=== PATIENT | female | born 1975 | race African-American/Black ===

== ENCOUNTER 2016-12-24 12:37 | Emergency (ER) | payer BC, MEDICAID ==
[~2016-12-24] VITALS: Ht 157.5 cm; Wt 104.4 kg
[~2016-12-24 12:37] MED LIST: CYCL-36 PO; DILA2TAB4 PO; MOBI7.5T PO
[2016-12-24 12:45] VITALS: BP 121/76; PULSE 86; RESP 18; TEMP 98.1; O2SAT 97
[2016-12-24] MEDS ORDERED: DILA8TAB4 PO (12:49)
[2016-12-24 12:55] LABS: BLOOD, URINE TRACE (NEG); GLUCOSE,URINE NEG (NEG); KETONE, URINE NEG (NEG); NITRITE,URINE NEG (NEG)
[2016-12-24 12:56] LABS: METHOD OF COLLECTION CLEAN CATCH; URINE COLOR YELLOW (YELLW/STRAW)
[2016-12-24 13:01] LABS: BACTERIA, URINE MOD /hpf; COMMENT (UR) CULTURE INDICATED; COMMENT2 (UR) MUCOUS PRESENT; CULTURE IF INDICATED CULTURE INDICATED; RBC, URINE 0-3 /hpf (0-3)
--- NOTE | 2016-12-24 13:02 | PD ---
HPI Chief Complaint: Musculoskeletal Complaint Time Seen by Provider: 12:40 Travel History International Travel<30 days: No Contact w/Intl Traveler<30days: No Traveled to known affect area: No History of Present Illness HPI 41-year-old female presents to the emergency room with acute on chronic right- sided low back pain that started while she was working earlier today. Patient states she is chronic back pain but this feels different. States last time she had the symptoms she had a urinary tract infection and would like to be evaluated for urinary tract infection at this time. Patient is prescribed 8 mg Dilaudid every 6 hours for her chronic back pain but does not take it before going to work so she has not taken anything today. She denies fever, chills, nausea, vomiting, dysuria, urgency, frequency, hematuria, pelvic pain, and vaginal discharge. Last menstrual cycle was 2 weeks ago. Patient denies possibility of . PFSH Past Medical History High Cholesterol: Yes Diminished Hearing: No Headaches: Yes Musculoskeletal: Yes (CHRONIC BACK PAIN) Immunizations Current: No Influenza Vaccination: No ?: Not LMP: "THIS MONTH" : 4 Para: 4 Tubal Ligation: Yes Social History Alcohol Use: No Tobacco Use: No Substance Use: No Allergies-Medications (Allergen,Severity, Reaction): Coded Allergies: No Known Allergies (Verified , 12/24/16) Reported Meds & Prescriptions Reported Meds & Active Scripts Active Cipro (Ciprofloxacin HCl) 500 Mg Tab 500 Mg PO BID 7 Days Reported Dilaudid (Hydromorphone HCl) 8 Mg Tab 8 Mg PO Q6H PRN Review of Systems Except as stated in HPI: all other systems reviewed are Neg Physical Exam Narrative GENERAL: Well-nourished, morbidly obese female in no acute distress. Afebrile. Ambulatory. SKIN: Focused skin assessment warm/dry. HEAD: Normocephalic. EYES: No scleral icterus. No injection or drainage. NECK: Supple, trachea midline. No JVD or lymphadenopathy. CARDIOVASCULAR: Regular rate and rhythm without murmurs, gallops, or rubs. RESPIRATORY: Breath sounds equal bilaterally. No accessory muscle use. GASTROINTESTINAL: Abdomen soft, non-tender, nondistended. BACK: No midline obvious deformity. No CVA tenderness. Tenderness to palpation of the right lower lumbar back. Data Data Last Documented VS Vital Signs Date Time Temp Pulse Resp B/P Pulse Ox O2 Delivery O2 Flow Rate FiO2 12/24/16 12:45 98.1 86 18 121/76 97 Orders Urinalysis - C+S If Indicated (12/24/16 12:46) Urine Culture (12/24/16 12:45) Ct Abd/Pel W/O Iv Contrast (12/24/16 13:19) Ketorolac Inj (Toradol Inj) (12/24/16 13:30) Labs Laboratory Tests Test 12/24/16 12:45 Urine Collection Type CLEAN CATCH Urine Color YELLOW Urine Turbidity SLIGHT Urine pH 6.0 Urine Specific [place] 1.015 Urine Protein NEG mg/dL Urine Glucose (UA) NEG mg/dL Urine Ketones NEG mg/dL Urine Occult Blood TRACE Urine Nitrite NEG Urine Bilirubin NEG Urine Leukocyte Esterase LARGE Urine RBC 0-3 /hpf Urine WBC 25-49 /hpf Urine WBC Clumps FEW Urine Squamous Epithelial 6-8 /hpf Cells Urine Amorphous Sediment FEW Urine Bacteria MOD /hpf Microscopic Urinalysis Comment CULTURE INDICATED Urine Collection Time 1245 MDM Medical Decision Making Medical Screen Exam Complete: Yes Emergency Medical Condition: Yes Medical Record Reviewed: Yes Differential Diagnosis Dysuria, UTI, acute exacerbation of chronic pain, muscle strain, muscle spasm, kidney stone Narrative Course 41-year-old female with history of kidney stones presents to the emergency room for evaluation of right-sided flank pain that started earlier today. Patient states last time she had symptoms like this, she ended up having a urinary tract infection and is requesting to be evaluated today. She has no urinary complaints. Vital signs stable. Physical exam reveals right-sided low back pain but no CVA tenderness. Abdomen soft, nontender. UA shows evidence of infection with some blood. Given history of kidney stones, hematuria, and no urinary symptoms, CT was ordered to evaluate for stones. CT is negative for kidney stones. This is acute cystitis. Patient given 7 days of Cipro to cover for possible pyelonephritis. Patient was discharged with instructions to follow up with her PCP for other CT findings. Told to return for worsening symptoms. She understands and agrees to plan. Diagnosis Primary Impression: Urinary tract infection Qualified Code: N30.01 - Acute cystitis with hematuria Referrals: Primary Care Physician Patient Instructions: General Instructions, Urinary Tract Infection in Women ( ED) Additional Instructions: Rest and drink plenty of fluids. Take prescribed pain medication for pain. Cipro as directed, until gone. Follow-up with PCP concerning CT findings. Return for worsening symptoms. Med/Other Pt SpecificInfo: Prescription(s) given Scripts Ciprofloxacin (Cipro)500 Mg [id number] Mg PO BID 7 Days Ref 0 Prov:Yuri Salmon MD 12/24/16 Disposition: 01 DISCHARGE HOME Condition: Stable Joie Salvador Dec 24, 2016 13:01
[2016-12-24] MEDS ORDERED: CIPR-9 PO (13:14)
[2016-12-24] MEDS ORDERED: KETOROLAC TROMETHAMINE 60 MG/2 ML (IM) VIAL IM ONE (13:30)
--- NOTE | 2016-12-24 14:03 | RADRPT ---
EXAM DATE/TIME: 12/24/2016 13:27 [facility] COMPARISON: No previous studies available for comparison. INDICATIONS : Right lower flank pain. Evaluate for calculi. ORAL CONTRAST: No oral contrast ingested. RADIATION DOSE: 23.99 CTDIvol (mGy) MEDICAL HISTORY : None SURGICAL HISTORY : Tubal ligation. ENCOUNTER: Initial ACUITY: 1 day PAIN SCALE: 5/10 LOCATION: Right flank TECHNIQUE: Volumetric scanning of the abdomen and pelvis was performed. Using automated exposure control and ad justment of the mA and/or kV according to patient size, radiation dose was kept as low as reasonably achievable to obtain optimal diagnostic quality images. DICOM format image data is available electro nically for review and comparison. FINDINGS: LOWER LUNGS: The visualized lower lungs are clear. LIVER: Homogeneous density without lesion. There is no dilation of the biliary tree. No calcified gallston es. SPLEEN: Normal size without lesion. PANCREAS: Within normal limits. KIDNEYS: Normal in size and shape. There is no mass, stone, or hydronephrosis. ADRENAL GLANDS: Within normal limits. VASCULAR: There is no aortic aneurysm. BOWEL/MESENTERY: The stomach, small bowel, and colon demonstrate no acute abnormality. There is no free intraperitone al air or fluid. ABDOMINAL WALL: Within normal limits. RETROPERITONEUM: There is no lymphadenopathy. BLADDER: No wall thickening or mass. REPRODUCTIVE: Within normal limits. INGUINAL: Tiny bilateral inguinal hernias containing only fat are noted. MUSCULOSKELETAL: Mild degenerative changes and scoliosis of the thoracolumbar spine are noted. CONCLUSION: 1. No acute obstructive uropathy. 2. Tiny bilateral inguinal hernias containing only fat. 3. Mild degenerative changes and scoliosis of the thoraco-lumbar spine. Jose A Tellez MD on December 24, 2016 at 13:56 Board Certified Radiologist. This report was verified electronically.
== END 2016-12-24 14:38 | disposition home or self-care (01) ==
LOC: PHEFT 12:37
DX: N30.01 Acute cystitis with hematuria (principal); B96.89 Other specified bacterial agents as the cause of diseases classified elsewhere; M54.5 Low back pain; G89.29 Other chronic pain
CPT/HCPCS: 74176; 81001; 87086

== ENCOUNTER 2017-02-11 09:07 | Emergency (ER) | payer BC ==
[~2017-02-11] VITALS: Ht 160 cm; Wt 102.0 kg
[~2017-02-11 09:07] MED LIST changes: +CIPR-9 PO; -CYCL-36 PO; -DILA2TAB4 PO; +DILA8TAB4 PO; -MOBI7.5T PO
[2017-02-11 09:10] VITALS: BP 157/84; PULSE 85; RESP 17; TEMP 98.4; O2SAT 99
[2017-02-11] MEDS ORDERED: IBUP800T23 PO (09:34)
[2017-02-11] MEDS ORDERED: MEDR4PAK PO (09:34)
[2017-02-11] MEDS ORDERED: ROBA500T PO (09:34)
--- NOTE | 2017-02-11 09:34 | PD ---
HPI Chief Complaint: Back/ Neck Pain or Injury Time Seen by Provider: 09:31 Travel History International Travel<30 days: No Contact w/Intl Traveler<30days: No Traveled to known affect area: No History of Present Illness HPI 41-year-old female presents to the emergency Department with complaint of right- sided low back pain that radiates down her right leg that started last night. Denies injury. Denies heavy lifting or straining. Reports history of chronic low back pain. Denies encopresis, incontinence, saddle anesthesias. Denies IV drug use or cancer. Denies fever, vomiting, dysuria, abdominal pain, change in stool. Denies paresthesias, loss of sensation or decreased range of motion, decreased strength bilateral lower extremities. Reports being ambulatory with a limp to the right lower extremities. Has not taken any medications or treatments to alleviate her symptoms. Symptoms are mild in severity. No known allergies. Has no medical complaints. No other modifying factors or associated signs and symptoms. PFSH Past Medical History High Cholesterol: Yes Diminished Hearing: No Headaches: Yes Musculoskeletal: Yes (CHRONIC BACK PAIN) Immunizations Current: No ?: Not LMP: 3 WEEKA AGO : 4 Para: 4 Tubal Ligation: Yes Social History Alcohol Use: No Tobacco Use: No Substance Use: No Allergies-Medications (Allergen,Severity, Reaction): Coded Allergies: No Known Allergies (Verified , 02/11/17) Reported Meds & Prescriptions Reported Meds & Active Scripts Active Medrol Dosepak (Methylprednisolone) 4 Mg Dspk 4 Mg PO DIRECTED Per Pharmacist direction Ibuprofen 800 Mg Tab 800 Mg PO Q6HR PRN Robaxin (Methocarbamol) 500 Mg Tab 500 Mg PO QID PRN Reported Dilaudid (Hydromorphone HCl) 8 Mg Tab 8 Mg PO Q6H PRN Review of Systems Except as stated in HPI: all other systems reviewed are Neg Physical Exam Narrative GENERAL: Well-nourished, well-developed black female patient, in no acute distress; afebrile, nontoxic-appearing SKIN: Warm and dry. HEAD: Atraumatic. Normocephalic. EYES: Pupils equal and round. No scleral icterus. No injection or drainage. ENT: Mucosa pink and moist. Airway patent. NECK: Trachea midline. CARDIOVASCULAR: Regular rate. RESPIRATORY: No accessory muscle use. GASTROINTESTINAL: Obese. MUSCULOSKELETAL: Bilateral lower extremities supple and non-tense with 2+ pedal pulses and sensory intact; with full range of motion and 5/5 strength. 2 + DTRs bilaterally. Active dorsiflexion and extension of bilateral feet. Right straight leg raise is positive for low back pain. Ambulatory in room with normal gait. Sitting up in bed at 90. No obvious deformities. No clubbing. No cyanosis. No edema. BACK: No midline point tenderness on palpation of the lumbar spine. Tenderness on palpation of right lumbar iliosacral area. No obvious deformities. NEUROLOGICAL: Awake and alert. Oriented 3. No obvious cranial nerve deficits. Motor grossly within normal limits. Normal speech. Moves all extremities. 5/5 strength to all extremities. Sensory intact. PSYCHIATRIC: Appropriate mood and affect; insight and judgment normal. Data Data Last Documented VS Vital Signs Date Time Temp Pulse Resp B/P (MAP) Pulse Ox O2 Delivery O2 Flow Rate FiO2 02/11/17 09:48 02/11/17 09:10 98.4 85 17 99 Orders Orders Ibuprofen (Motrin) (02/11/17 09:45) Methocarbamol (Robaxin) (02/11/17 09:45) [facility] Medical Decision Making Medical Screen Exam Complete: Yes Emergency Medical Condition: Yes Medical Record Reviewed: Yes Differential Diagnosis Low back pain, sciatica, low back strain, acute exacerbation of chronic low back pain Narrative Course 41-year-old female physical exam and history of present illness consistent with right-sided low back pain with sciatica. Patient denies encopresis, incontinence, saddle anesthesias. Denies any drug use or cancer. Has no midline tenderness on palpation of the lumbar spine. Is ambulatory in the room with a limp to the right lower extremity. Ibuprofen and Robaxin administered in the ER. Ibuprofen, Robaxin, Medrol Dosepak prescribed for home. Instructed patient to follow up with primary care provider. Patient verbalizes understanding and agreement with treatment plan. Patient is medically cleared and stable for discharge. Discussed reasons to return to the emergency department. Patient agrees with treatment plan. The patients vital signs are stable and the patient is stable for outpatient follow-up and treatment. Patient discharged home, stable and in no acute distress. Diagnosis Primary Impression: Right-sided low back pain with sciatica Qualified Codes: M54.41 - Lumbago with sciatica, right side Referrals: Primary Care Physician Patient Instructions: Acute Low Back Pain (ED), General Instructions, Sciatica (ED) Departure Forms: Tests/Procedures, Work Release Enter return to work date: Feb 13, 2017 Additional Instructions: Tylenol or ibuprofen as directed and as needed for pain Robaxin as prescribed and as needed for muscle spasms Heating pad and/or ice to affected area to reduce pain Avoid aggravating activities; increase activity as tolerated Follow-up with primary care provider Return to emergency department immediately with worsening of symptoms Med/Other Pt SpecificInfo: Prescription(s) given Scripts Methylprednisolone Dosepak (Medrol Dosepak) 4 Mg Dspk 4 MG PO DIRECTED, #1 DSPK 0 Refills Per Pharmacist direction Prov: Deirdre Dominique 02/11/17 Ibuprofen (Ibuprofen) 800 Mg Tab 800 MG PO Q6HR Y for PAIN, #30 TAB 0 Refills Prov: Deirdre Dominique 02/11/17 Methocarbamol (Robaxin) 500 Mg Tab 500 MG PO QID Y for MUSCLE SPASM, #30 TAB 0 Refills Prov: Deirdre Dominique 02/11/17 Disposition: 01 DISCHARGE HOME Condition: Stable Deirdre Dominique Feb 11, 2017 09:34
[2017-02-11] MEDS ORDERED: METHOCARBAMOL 500 MG TAB PO ONE (09:45)
[2017-02-11] MEDS ORDERED: IBUPROFEN 800 MG TAB PO ONE (09:45)
== END 2017-02-11 10:10 | disposition home or self-care (01) ==
LOC: NEPK 09:07
DX: M54.41 Lumbago with sciatica, right side (principal); E78.00 Pure hypercholesterolemia, unspecified; Z79.899 Other long term (current) drug therapy
CPT/HCPCS: 99284

== ENCOUNTER 2017-06-16 06:39 | Emergency (ER) | payer BC ==
[~2017-06-16] VITALS: Ht 172.7 cm; Wt 104.0 kg
[~2017-06-16 06:39] MED LIST changes: -CIPR-9 PO; +IBUP1TAB7 PO; +MEDR4PAK PO; +ROBA500T PO
[2017-06-16 06:50] VITALS: BP 132/89; PULSE 100; RESP 16; TEMP 98.6; O2SAT 98
[2017-06-16] MEDS ORDERED: DILA4TAB10 PO (07:11)
[2017-06-16] MEDS ORDERED: IBUP-232 PO (07:44)
[2017-06-16] MEDS ORDERED: BENZ1LOZ5 PO (07:44)
--- NOTE | 2017-06-16 07:44 | PD ---
HPI Chief Complaint: Cold / Flu Symptoms Time Seen by Provider: 07:41 Travel History International Travel<30 days: No Contact w/Intl Traveler<30days: No Traveled to known affect area: No History of Present Illness HPI 41-year-old female patient with history of no significant past medical issues, has had several days history of sore throat, coughing, headaches. She states that several coworkers have had similar symptoms and has been out for it. She denies any vomiting, diarrhea, fevers, or any other symptoms. Modifying Factors: None Associated Signs & Symptoms: Coughing, sore throat, headaches Risk Factors: Sick contacts PFSH Past Medical History High Cholesterol: Yes Diminished Hearing: No Headaches: Yes Musculoskeletal: Yes (CHRONIC BACK PAIN) Immunizations Current: No Influenza Vaccination: No ?: Not : 4 Para: 4 Tubal Ligation: Yes Social History Alcohol Use: No Tobacco Use: No Substance Use: No Allergies-Medications (Allergen,Severity, Reaction): Coded Allergies: No Known Allergies (Verified Adverse Reaction, Unknown, 06/16/17) Reported Meds & Prescriptions Reported Meds & Active Scripts Active Cepacol Sore Throat Lozenge (Benzocaine/Menthol) 15-3.6 Mg Lozg 1 Lozenge PO Q2H PRN Ibuprofen 600 Mg Tab 600 Mg PO Q6H PRN Reported Dilaudid (Hydromorphone HCl) 4 Mg Tab 4 Mg PO BID Review of Systems Except as stated in HPI: all other systems reviewed are Neg Physical Exam Narrative GENERAL: Well-developed middle age -[place] female patient currently in mild distress. Awake and oriented 3. SKIN: Focused skin assessment warm/dry. HEAD: Atraumatic. Normocephalic. EYES: Pupils equal and round. No scleral icterus. No injection or drainage. ENT: Mucosa pink and moist. Mild erythema with no significant exudates. No uvular edema. No uvular, palatal, or tonsillar deviation. Airway patent. NECK: Trachea midline. No JVD. Supple. CARDIOVASCULAR: Regular rate and rhythm. No murmur appreciated. RESPIRATORY: No accessory muscle use. Clear to auscultation. Breath sounds equal bilaterally. GASTROINTESTINAL: Abdomen soft, non-tender, nondistended. Hepatic and splenic margins not palpable. MUSCULOSKELETAL: No obvious deformities. No clubbing. No cyanosis. No edema. NEUROLOGICAL: Awake and alert. No obvious cranial nerve deficits. Motor grossly within normal limits. Normal speech. PSYCHIATRIC: Appropriate mood and affect; insight and judgment normal. Data Data Last Documented VS Vital Signs Date Time Temp Pulse Resp B/P (MAP) Pulse Ox O2 Delivery O2 Flow Rate FiO2 06/16/17 06:50 98.6 100 16 132/89 (103) 98 Orders Orders Group A Rapid Strep Screen (06/16/17 07:12) Influenzae A/B Antigen (06/16/17 07:44) Strep Culture (Group A) (06/16/17 07:19) MDM Medical Decision Making Medical Screen Exam Complete: Yes Emergency Medical Condition: Yes Medical Record Reviewed: Yes Differential Diagnosis Viral URI versus pharyngitis versus bronchitis versus pneumonia versus influenza Narrative Course Rapid strep is negative. Influenza was ordered but the patient refused to get the test. Pulmonary exam is fairly unremarkable and I'm not suspecting a pneumonia in this case. Symptoms are indicative of a viral URI which appears to be going around the work place. At this point, my plan would be to release her symptomatic relief for coughing and discomfort in the throat. Return for any worsening in symptoms. Follow-up with primary care physician as needed. The plan has been discussed with her and she states understanding. Diagnosis Primary Impression: Viral URI Med/Other Pt SpecificInfo: Prescription(s) given Scripts Benzocaine-Menthol Lozenge (Cepacol Sore Throat Lozenge) 15-3.6 Mg Lozg 1 LOZENGE PO Q2H Y for SORE THROAT, #1 CONTAINER 0 Refills Prov: Christelle Ng MD 06/16/17 Ibuprofen (Ibuprofen) 600 Mg Tab 600 MG PO Q6H Y for Pain/Inflammation, #20 TAB 0 Refills Prov: Christelle Ng MD 06/16/17 Disposition: 01 DISCHARGE HOME Condition: Stable Christelle Ng MD Jun 16, 2017 07:44
[2017-06-16] MEDS ORDERED: GUAISYP4 PO (21:27)
[2017-06-16] MEDS ORDERED: OSEL75 PO (21:27)
[2017-06-16] MEDS ORDERED: BENZ100 PO (21:27)
== END 2017-06-16 08:07 | disposition home or self-care (01) ==
LOC: PHED 06:39 → PHEFT 08:07
DX: J06.9 Acute upper respiratory infection, unspecified (principal)
CPT/HCPCS: 87081; 87880; 99283

== ENCOUNTER 2017-06-16 20:31 | Emergency (ER) | payer BC ==
[~2017-06-16] VITALS: Ht 172.7 cm; Wt 105.1 kg
[~2017-06-16 20:31] MED LIST changes: +BENZ1LOZ5 PO; +DILA4TAB10 PO; +IBUP-232 PO
[2017-06-16 20:37] VITALS: BP 150/81; PULSE 91; RESP 20; TEMP 99.3; O2SAT 98
--- NOTE | 2017-06-16 21:15 | PD ---
HPI Chief Complaint: Cold / Flu Symptoms Time Seen by Provider: 21:09 Travel History International Travel<30 days: No Contact w/Intl Traveler<30days: No Traveled to known affect area: No History of Present Illness HPI 41-year-old female seen in the emergency department earlier today, diagnosed with viral URI, returns today because her cough has not improved. Patient tested negative for group A strep earlier today. She refused to allow them to do a flu swab. She was discharged home with a prescription for cough drops. Patient reports that her cough is not improved with these drops in every time she coughs her forehead hurts. Forehead is painless when she is not coughing. She is unsure if she has a fever. Cough is productive of phlegm. No hemoptysis. No dyspnea. PFSH Past Medical History High Cholesterol: Yes Diminished Hearing: No Headaches: Yes Musculoskeletal: Yes (CHRONIC BACK PAIN) Immunizations Current: No ?: Not : 4 Para: 4 Tubal Ligation: Yes Social History Alcohol Use: No Tobacco Use: No Substance Use: No Allergies-Medications (Allergen,Severity, Reaction): Coded Allergies: No Known Allergies (Verified Adverse Reaction, Unknown, 06/16/17) Reported Meds & Prescriptions Reported Meds & Active Scripts Active Cepacol Sore Throat Lozenge (Benzocaine/Menthol) 15-3.6 Mg Lozg 1 Lozenge PO Q2H PRN Ibuprofen 600 Mg Tab 600 Mg PO Q6H PRN Reported Dilaudid (Hydromorphone HCl) 4 Mg Tab 4 Mg PO BID Review of Systems Except as stated in HPI: all other systems reviewed are Neg Physical Exam Narrative GENERAL: Well-developed, well-nourished, dry cough, comfortable, no apparent distress. SKIN: Focused skin assessment warm/dry. No rash. HEAD: Atraumatic. Normocephalic. EYES: Pupils equal and round. No scleral icterus. No injection or drainage. ENT: Mucous membranes pink and dry. Pharynx with mild erythema. NECK: Trachea midline. No JVD. No nuchal rigidity. CARDIOVASCULAR: Regular rate and rhythm. RESPIRATORY: No accessory muscle use. Clear to auscultation. Breath sounds equal bilaterally. GASTROINTESTINAL: Abdomen soft, non-tender, nondistended. MUSCULOSKELETAL: No obvious deformities. No clubbing. No cyanosis. No edema. NEUROLOGICAL: Awake and alert. No obvious cranial nerve deficits. Motor grossly within normal limits. Normal speech. PSYCHIATRIC: Appropriate mood and affect; insight and judgment normal. Data Data Last Documented VS Vital Signs Date Time Temp Pulse Resp B/P (MAP) Pulse Ox O2 Delivery O2 Flow Rate FiO2 06/16/17 20:53 Room Air 06/16/17 20:37 99.3 91 20 150/81 (104) 98 Orders Orders Influenzae A/B Antigen (06/16/17 21:13) [facility] Medical Decision Making Medical Screen Exam Complete: Yes Emergency Medical Condition: Yes Differential Diagnosis URI, influenza, pneumonia, bronchitis Narrative Course Vital signs show heart rate 91, blood pressure 150/81, pulse ox 98% on room air , oral temp of 99.3F. The patient was agreeable to the flu test during my assessment, however when the nurse attempted to obtain a sample, she again refused. She is overall well- appearing. There is no nuchal rigidity. She is mainly concerned about her cough and would like something for it. I will give her prescription for Robitussin with codeine as well as Tessalon Perles. I will also give her a prescription for Tamiflu as she likely has the flu. She is stable for discharge home with further workup as an outpatient with a primary care physician this week. She was informed on when to return to the emergency department. She verbalizes understanding and agreement with plan. Diagnosis Primary Impression: Influenza-like illness Referrals: Primary Care Physician 3 days Additional Instructions: Follow-up with a primary care physician this week. Return to the emergency department for worsening symptoms or any other concerns. Scripts Oseltamivir (Tamiflu) 75 Mg Cap 75 MG PO BID for Mgmt Viral Infection for 5 Days, #10 CAP 0 Refills Prov: Vince Marie MD 06/16/17 Guaifenesin-Codeine Liq (Guaifenesin AC Liq) 100-10 Mg/5 Ml Syrp 10 ML PO Q6H Y for COUGH, #1 BOTTLE 0 Refills Prov: Vince Marie MD 06/16/17 Benzonatate (Tessalon Perles) 100 Mg Cap 100 MG PO TID Y for COUGH for 7 Days, CAP 0 Refills Prov: Vince Marie MD 06/16/17 Disposition: 01 DISCHARGE HOME Condition: Stable Vince Marie MD Jun 16, 2017 21:15
[2017-06-16] MEDS ORDERED: OSEL75 PO (21:27)
[2017-06-16] MEDS ORDERED: BENZ100 PO (21:27)
[2017-06-16] MEDS ORDERED: GUAISYP4 PO (21:27)
== END 2017-06-16 21:39 | disposition home or self-care (01) ==
LOC: PHEFT 20:31
DX: R05 Cough (principal); E78.00 Pure hypercholesterolemia, unspecified
CPT/HCPCS: 99284

== ENCOUNTER 2017-11-13 17:54 | Emergency (ER) | payer BC, OTHER ==
[~2017-11-13] VITALS: Ht 172.7 cm; Wt 110.0 kg
[~2017-11-13 17:54] MED LIST changes: +BENZ100 PO; -DILA8TAB4 PO; +GUAISYP4 PO; -IBUP1TAB7 PO; -MEDR4PAK PO; +OSEL75 PO; -ROBA500T PO
[2017-11-13 17:59] VITALS: BP 141/91; PULSE 86; RESP 16; TEMP 98.5; O2SAT 99
--- NOTE | 2017-11-13 18:32 | PD ---
HPI Chief Complaint: Headache Time Seen by Provider: 18:12 Travel History International Travel<30 days: No Contact w/Intl Traveler<30days: No Traveled to known affect area: No History of Present Illness HPI 42-year-old female presents to the emergency department with complaint of a "pounding "headache 3 hours. Says she has been arguing, fussing, and crying today and thinks that maybe is what is caused her headache, but does state " what could possibly be making my head hurt this bad." She denies history of headaches, other than when she has neck pain she says she has headache, but she says she has no neck pain at this time. She denies focal deficits or weakness. Denies confusion, disorientation, change in mentation, slurred speech. Denies fever, vomiting. Rates headache 8/10. Headache is frontal. Pounding in nature. Took 800 mg ibuprofen with no relief of headache. Last took ibuprofen at 2 PM. No known relieving factors. No known aggravating factors. No known allergies. No primary care provider. Denies significant past medical history. Has history of tubal ligation. Has no other medical complaints. No other modifying factors or associated signs and symptoms. PFSH Past Medical History High Cholesterol: Yes Diminished Hearing: No Headaches: Yes Musculoskeletal: Yes (CHRONIC BACK PAIN) Immunizations Current: No : 4 Para: 4 Tubal Ligation: Yes Social History Alcohol Use: No Tobacco Use: No Substance Use: No Allergies-Medications (Allergen,Severity, Reaction): Coded Allergies: No Known Allergies (Verified Adverse Reaction, Unknown, 06/16/17) Reported Meds & Prescriptions Reported Meds & Active Scripts Active Reported Dilaudid (Hydromorphone HCl) 4 Mg Tab 8 Mg PO QID Review of Systems Except as stated in HPI: all other systems reviewed are Neg Physical Exam Narrative GENERAL: Well-nourished, well-developed black female patient, in no acute distress; grabbing her head and cringing as if it is painful SKIN: Warm and dry. HEAD: Atraumatic. Normocephalic. No facial droop noted. Tongue midline. Shoulder shrug equal. Finger to nose test normal. EYES: Pupils equal and round at 3 mm with brisk reaction. No scleral icterus. No injection or drainage. PERRLA. EOMI. ENT: Mucosa pink and moist. Airway patent. NECK: Trachea midline. No lymphadenopathy. CARDIOVASCULAR: Regular rate. RESPIRATORY: No accessory muscle use. GASTROINTESTINAL: Flat. MUSCULOSKELETAL: No obvious deformities. No clubbing. No cyanosis. No edema. NEUROLOGICAL: Awake and alert. Oriented 4. No obvious cranial nerve deficits. Motor grossly within normal limits. Normal speech. No ataxia. No mid -line drift. No upper or lower extremity drift. Facility Administrator strength equal bilaterally. Sensory intact and equal bilaterally. Moves all extremities. Active plantar and dorsiflexion and strength equal bilaterally. 5/5 strength to all extremities. PSYCHIATRIC: Appropriate mood and affect; insight and judgment normal. Data Data Last Documented VS Vital Signs Date Time Temp Pulse Resp B/P (MAP) Pulse Ox O2 Delivery O2 Flow Rate FiO2 11/13/17 17:59 98.5 86 16 141/91 (108) 99 Orders MDM Medical Decision Making Medical Screen Exam Complete: Yes Emergency Medical Condition: Yes Medical Record Reviewed: Yes Differential Diagnosis Acute headache, tension headache, tumor, subdural hematoma Narrative Course 42-year-old female with headache. She does state she was arguing and crying today and thinks that is what is causing headache. She did take 800 mg ibuprofen with no relief of the headache. She has no history of headaches. She made a comment "what could possibly be making my head hurt this bad." Neuro exam is unremarkable. She is grabbing her head and cringing and appears in pain. I will do CT of the head to rule out any acute findings. CT head ordered. Patient left prior to CT scan and treatment . AMA: The risks of leaving against medical advice without further evaluation treatment were discussed with the patient. These risks include cardiac dysfunction, cardiac dysrhythmia, possible heart attack, possible stroke or . The patient indicated understanding of these risks and appeared to have the capacity to make this decision. Diagnosis Primary Impression: Left against medical advice Disposition: 07 AGAINST MEDICAL ADVICE Deirdre Dominique Nov 13, 2017 18:32
== END 2017-11-13 19:27 | disposition left against medical advice (07) ==
LOC: NEPK 17:54
DX: R51 Headache (principal); Z53.20 Procedure and treatment not carried out because of patient's decision for unspecified reasons; E78.00 Pure hypercholesterolemia, unspecified; Z79.899 Other long term (current) drug therapy; Z98.51 Tubal ligation status
CPT/HCPCS: 99282

== ENCOUNTER 2017-11-16 21:01 | Emergency (ER) | payer OTHER ==
[~2017-11-16 21:01] MED LIST changes: -BENZ100 PO; -BENZ1LOZ5 PO; -GUAISYP4 PO; -IBUP-232 PO; -OSEL75 PO
[2017-11-16 21:24] VITALS: BP 134/79; PULSE 97; RESP 18; TEMP 98.5; O2SAT 97
[2017-11-17] MEDS ORDERED: MOBI15TA PO (00:15)
[2017-11-17] MEDS ORDERED: MACR100C2 PO (03:25)
== END 2017-11-16 23:20 | disposition left against medical advice (07) ==
LOC: NED 21:01
DX: R10.9 Unspecified abdominal pain (principal); Z53.21 Procedure and treatment not carried out due to patient leaving prior to being seen by health care provider
CPT/HCPCS: 99281

== ENCOUNTER 2017-11-16 23:19 | Emergency (ER) | payer OTHER ==
[~2017-11-16] VITALS: Ht 170.2 cm; Wt 104.5 kg
[2017-11-16 23:29] VITALS: BP 113/78; PULSE 82; RESP 18; TEMP 98.6; O2SAT 96
[2017-11-16 23:47] LABS: BILIRUBIN, URINE NEG (NEG); BLOOD, URINE SMALL (NEG); GLUCOSE,URINE NEG (NEG); KETONE, URINE TRACE mg/dL (NEG); NITRITE,URINE NEG (NEG); URINE COLOR YELLOW (YELLW/STRAW); URINE LEUKOCYTE ESTERASE MOD (NEG)
[2017-11-17 00:11] LABS: BACTERIA, URINE FEW /hpf; RBC, URINE 0-3 /hpf (0-3); SQUAMOUS EPITHELIAL CELL URINE > 8 /hpf (0-5); WBC, URINE 15-19 /hpf (0-5)
[2017-11-17] MEDS ORDERED: MOBI15TA PO (00:15)
[2017-11-17 01:02] VITALS: O2SAT 97
[2017-11-17 01:02] LABS: AUTOMATED NEUTROPHIL # 3.8 TH/MM3 (1.8-7.7); BASOPHIL # 0.1 TH/MM3 (0-0.2); EOSINOPHIL # 0.5 TH/MM3 (0-0.4); EOSINOPHIL % 7.9 % (0.0-4.0); HEMATOCRIT 33.2 % (35.0-46.0); HEMOGLOBIN 11.4 GM/DL (11.6-15.3); LYMPH % 23.7 % (9.0-44.0); LYMPHOCYTE # 1.5 TH/MM3 (1.0-4.8); MEAN CELL VOLUME 82.1 FL (80.0-100.0); MEAN CORPUSCULAR HEMOGLOBIN 28.3 PG (27.0-34.0); MEAN CORPUSCULAR HGB CONC 34.4 % (32.0-36.0); MEAN PLATELET VOLUME 8.6 FL (7.0-11.0); MONO % 6.2 % (0.0-8.0); MONOCYTE # 0.4 TH/MM3 (0-0.9); NEUT % 60.2 % (16.0-70.0); PLATELET COUNT 267 TH/MM3 (150-450); RED BLOOD COUNT 4.04 MIL/MM3 (4.00-5.30); RED CELL DISTRIBUTION WIDTH 14.4 % (11.6-17.2); WHITE BLOOD COUNT 6.3 TH/MM3 (4.0-11.0)
[2017-11-17 01:10] LABS: CHLORIDE 106 MEQ/L (98-107); SODIUM (NA) 140 MEQ/L (136-145)
[2017-11-17 01:13] LABS: CALCIUM 8.7 MG/DL (8.5-10.1)
[2017-11-17 01:14] LABS: ALBUMIN 3.6 GM/DL (3.4-5.0); BICARBONATE 25.1 MEQ/L (21.0-32.0); BLOOD UREA NITROGEN 11 MG/DL (7-18); GLUCOSE,RANDOM 94 MG/DL (74-106)
[2017-11-17 01:17] LABS: ALT (GPT) 13 U/L (10-53); AST (GOT) 12 U/L (15-37); GLOMERULAR FILTRATION RATE 111 ML/MIN (>89)
[2017-11-17 01:18] LABS: TOTAL BILIRUBIN ADULT 0.2 MG/DL (0.2-1.0); TOTAL PROTEIN 7.3 GM/DL (6.4-8.2)
[2017-11-17 01:20] LABS: ALKALINE PHOSPHATASE 53 U/L (45-117)
[2017-11-17] MEDS ORDERED: MACR100C2 PO (03:25)
--- NOTE | 2017-11-17 03:26 | PD ---
HPI Chief Complaint: Abdominal Pain Time Seen by Provider: 03:11 Travel History International Travel<30 days: No Contact w/Intl Traveler<30days: No Traveled to known affect area: No History of Present Illness HPI The patient is a 42-year-old female that states she has a "flurry" feeling in her abdomen. This is been going on 2 days. She states it feels like there is something moving. She denies any pain in her pain level is a 0/10. She denies any nausea or vomiting. She denies any melanotic or bloody stools. She denies any dysuria, frequency or urgency or flank pain. She denies any fever. She states occasionally she does have some cramping. She denies any diarrhea. PFSH Past Medical History High Cholesterol: Yes Diminished Hearing: No Headaches: Yes Herniated Disk: Yes Musculoskeletal: Yes (CHRONIC BACK PAIN) Immunizations Current: Yes ?: Not LMP: 1 MONTH AGO : 4 Para: 4 Tubal Ligation: Yes Social History Alcohol Use: No Tobacco Use: No Substance Use: No Allergies-Medications (Allergen,Severity, Reaction): Coded Allergies: No Known Allergies (Verified Adverse Reaction, Unknown, 11/16/17) Reported Meds & Prescriptions Reported Meds & Active Scripts Active Reported Mobic (Meloxicam) 15 Mg Tab 15 Mg PO Q6HR PRN Dilaudid (Hydromorphone HCl) 4 Mg Tab 8 Mg PO QID Review of Systems Except as stated in HPI: all other systems reviewed are Neg Physical Exam Narrative GENERAL: The patient is obese, alert, oriented 3 in no apparent distress. When I encountered her she was sleeping and was difficult to wake. Her vital signs are normal. SKIN: Focused skin assessment warm/dry. HEAD: Atraumatic. Normocephalic. EYES: Pupils equal and round. No scleral icterus. No injection or drainage. ENT: No nasal bleeding or discharge. Mucous membranes pink and moist. NECK: Trachea midline. No JVD. CARDIOVASCULAR: Regular rate and rhythm. No murmur appreciated. RESPIRATORY: No accessory muscle use. Clear to auscultation. Breath sounds equal bilaterally. GASTROINTESTINAL: Abdomen soft, non-tender except for the suprapubic area, nondistended. Hepatic and splenic margins not palpable. No guarding or rebound is present. There was some discomfort over the suprapubic area midline on palpation. MUSCULOSKELETAL: No obvious deformities. No clubbing. No cyanosis. No edema. NEUROLOGICAL: Awake and alert. No obvious cranial nerve deficits. Motor grossly within normal limits. Normal speech. PSYCHIATRIC: Appropriate mood and affect; insight and judgment normal. Data Data Last Documented VS Vital Signs Date Time Temp Pulse Resp B/P (MAP) Pulse Ox O2 Delivery O2 Flow Rate FiO2 11/17/17 01:02 97 Room Air 11/16/17 23:29 98.6 82 18 113/78 (90) Orders Orders Urinalysis - C+S If Indicated (11/16/17 23:35) Ed Urine Pregnancytest Poc (11/16/17 23:35) Urine Culture (11/16/17 23:42) Complete Blood Count With Diff (11/17/17 00:36) Comprehensive Metabolic Panel (11/17/17 00:36) Iv Access Insert/Monitor (11/17/17 00:36) Oximetry (11/17/17 00:36) Lipase (11/17/17 00:36) Labs Laboratory Tests Test 11/16/17 23:42 11/17/17 00:45 Urine Color YELLOW Urine Turbidity CLEAR Urine pH 6.0 Urine Specific [place] 1.025 Urine Protein NEG mg/dL Urine Glucose (UA) NEG mg/dL Urine Ketones TRACE mg/dL Urine Occult Blood SMALL Urine Nitrite NEG Urine Bilirubin NEG Urine Urobilinogen 0.2 MG/DL Urine Leukocyte Esterase MOD Urine RBC 0-3 /hpf Urine WBC 15-19 /hpf Urine Squamous Epithelial Cells > 8 /hpf Urine Bacteria FEW /hpf Microscopic Urinalysis Comment CULTURE INDICATED White Blood Count 6.3 TH/MM3 Red Blood Count 4.04 MIL/MM3 Hemoglobin 11.4 GM/DL Hematocrit 33.2 % Mean Corpuscular Volume 82.1 FL Mean Corpuscular Hemoglobin 28.3 PG Mean Corpuscular Hemoglobin Concent 34.4 % Red Cell Distribution Width 14.4 % Platelet Count 267 TH/MM3 Mean Platelet Volume 8.6 FL Neutrophils (%) (Auto) 60.2 % Lymphocytes (%) (Auto) 23.7 % Monocytes (%) (Auto) 6.2 % Eosinophils (%) (Auto) 7.9 % Basophils (%) (Auto) 2.0 % Neutrophils # (Auto) 3.8 TH/MM3 Lymphocytes # (Auto) 1.5 TH/MM3 Monocytes # (Auto) 0.4 TH/MM3 Eosinophils # (Auto) 0.5 TH/MM3 Basophils # (Auto) 0.1 TH/MM3 CBC Comment AUTO DIFF Differential Comment AUTO DIFF CONFIRMED Blood Urea Nitrogen 11 MG/DL Creatinine 0.70 MG/DL Random Glucose 94 MG/DL Total Protein 7.3 GM/DL Albumin 3.6 GM/DL Calcium Level 8.7 MG/DL Alkaline Phosphatase 53 U/L Aspartate Amino Transf (AST/SGOT) 12 U/L Alanine Aminotransferase (ALT/SGPT) 13 U/L Total Bilirubin 0.2 MG/DL Sodium Level 140 MEQ/L Potassium Level 3.2 MEQ/L Chloride Level 106 MEQ/L Carbon Dioxide Level 25.1 MEQ/L Anion Gap 9 MEQ/L Estimat Glomerular Filtration Rate 111 ML/MIN Lipase 82 U/L MDM Medical Decision Making Medical Screen Exam Complete: Yes Emergency Medical Condition: Yes Medical Record Reviewed: Yes Interpretation(s) The complete metabolic profile is normal except for a potassium of 3.2. The lipase is normal. The CBC is normal except for anemia of 11.4 and hematocrit of 33.2. The urinalysis shows trace ketones, small blood, moderate leukocyte Estrace with a 15-19 white cells and few bacteria and culture is indicated. Differential Diagnosis Cholecystitis, colitis, gastroenteritis, anxiety, urinary tract infection Narrative Course The patient appears to have a urinary tract infection. We will give her Macrobid twice daily for 10 days and, hopefully, this will relieve her symptoms of "flurry". She is told to increase her liquid intake. The specific gravity is somewhat high at 1.025 and her trace ketones in the urine indicating slight dehydration. Diagnosis Primary Impression: Urinary tract infection Additional Instructions: As we discussed, take the antibiotic twice daily for 10 days and follow-up with her primary care physician. Hopefully, getting rid of the urinary tract infection will get rid of the "flurry" sensation. Med/Other Pt SpecificInfo: Prescription(s) given Scripts Nitrofurantoin Monohydrate Macrocrystals (Macrobid) 100 Mg Capsule 100 MG PO BID for Infection for 10 Days, #20 CAP 0 Refills Prov: Florentin Matthews MD 11/17/17 Disposition: 01 DISCHARGE HOME Condition: Stable Florentin Matthews MD Nov 17, 2017 03:26
[2017-11-17 03:42] VITALS: BP 117/65
== END 2017-11-17 03:44 | disposition home or self-care (01) ==
LOC: PHED 23:19
DX: N39.0 Urinary tract infection, site not specified (principal); E78.00 Pure hypercholesterolemia, unspecified
CPT/HCPCS: 80053; 81001; 83690; 84703; 85025; 87086; 99283